=== PATIENT | female | born 1940 | race Caucasian/White ===

== ENCOUNTER → 2016-05-21 | Outpatient (CLI) | payer OTHER ==
[~2016-05-21] MED LIST: ASPCH81X PO; COEN100C7 PO; DIFL0.0519 OPR; MIRA100T PO; PRVC/40 PO
[2016-05-21 16:26] LABS: BLOOD UREA NITROGEN 31 mg/dl (7-18)
== END | disposition home or self-care (01) ==
LOC: C.LAB1850 15:01
PROVIDERS: ATTEND Surgery
DX: J38.01 Paralysis of vocal cords and larynx, unilateral (principal)

== ENCOUNTER → 2016-11-26 | Day surgery (SDC) | payer OTHER ==
[2016-11-17 11:20] VITALS: Ht 170.2 cm; Wt 106.8 kg
[~2016-11-26] VITALS: Ht 170.2 cm; Wt 106.8 kg
[~2016-11-26] MED LIST changes: +500ML BSS 0.3ML EPI 1:1000PF IRRIG ONE; +ACETAMINOPHEN 325 MG TAB PO PRN; +AMVISC PLUS 0.8ML SYRINGE INT OCU ONE; +ATROPINE SULFATE 0.1 MG/ML 5ML SYR IV PRN; +AcetaZOLAMIDE 250 MG TAB PO SCH; +BETAXOLOL HCL 0.25% OP SUSP PER DROP CHARGE OPR SCH; +BRIMONIDINE TART 0.2% OP SOLN PER DROP CHARGE ONE; +BSS FLUSH ONE; +ENDOCOAT 0.85ML SYRINGE INT OCU ONE; +EpHEDrine SULFATE INJ 50 MG/ML AMP IV PRN; +EpINEphrine INJ 1MG/ML AMP 1 MG/ML AMP ONE; +LACTATED RINGER'S 1000ML 500 ML IV SCH; +LIDOCAINE 4% OP SOLN DROP CHARGE ONE; +LIDOCAINE 4% OP SOLN DROP CHARGE OPR SCH; +LIDOCAINE HCL 1% MPF 2 ML VIAL ONE; +MIDAZOLAM HCL 1 MG/ML 2ML VIAL ONE; +MIX: 4ML BSS 1ML EPI 1:1000 PF INSTIL ONE; +MOXIFLOXACIN OPH SOLN PER DROP CHARGE ONE; +OCUCOAT 1 ML SOLN IO ONE; +POVIDONE-IODINE OP SOLN 30 ML BTL ONE; +PROPARACAINE 0.5% OP SOLN PER DROP CHARGE OPR SCH; +TOBRAMYCIN/DEXAMETHASONE OPH OINT PER APPLN CHARGE ONE
[2016-11-26] MEDS: PHENYLEPHRINE HCL 2.5% OP SOLN PER DROP CHARGE OPR SCH ×2 (06:33→06:37)
[2016-11-26] MEDS: TROPICAMIDE 1% OP SOLN PER DROP CHARGE OPR SCH ×2 (06:34→06:38)
--- NOTE | 2016-11-26 06:34 | History & Physical Bridge - SC ---
H&P Re-Evaluation Bridge Note: I have examined the patient, reviewed the History & Physical and in the interval since the performance of the History & Physical I have noted the following changes of clinical significance: No changes noted
[2016-11-26] MEDS: CYCLOPENTOLATE HCL 1% OP SOLN PER DROP CHARGE OPR SCH ×2 (06:35→06:39)
[2016-11-26] MEDS: MOXIFLOXACIN OPH SOLN PER DROP CHARGE OPR SCH ×2 (06:36→06:46)
--- NOTE | 2016-11-26 07:17 | [facility] Operative Report ---
Operative Report Date of Service Nov 26, 2016. Operative Report PREOPERATIVE DIAGNOSIS: Senile nuclear cataract right eye. POSTOPERATIVE DIAGNOSIS: Senile nuclear cataract right eye. PROCEDURE: Phacoemulsification of right cataract with posterior chamber lens implant, type Bausch [employer] Lomb, model MX60, power + 23.00 Diopters. ANESTHESIA: Local standby. SURGEON: Dr. De La Vega. COMPLICATIONS: None. OPERATING TIME: [] minutes. OPERATION AND FINDINGS: PROCEDURE: The right pupil was dilated. The anesthetic was administered using a topical technique. The right eye was prepped and draped. A speculum was placed. A clear corneal incision was formed. The chamber was filled with Amvisc Plus and endocoat. A paracentesis was placed. A capsulorrhexis was performed. The nucleus was hydrodissected. The lens was removed with phacoemulsification. Time was 3.58 seconds. The aspiration unit was used to remove the cortex. The capsule was filled with Amvisc Plus. The lens implant was folded and placed into the capsule. The incision was hydrated. The Amvisc was aspirated. The wound was secure. The chamber was deep. The pupil was round. Alphagan solution and TobraDex ointment and Zymar solution were placed. The speculum was removed. DISPOSITION: The patient was returned to the recovery room in stable condition I attest to the content of the Intraoperative Record and any orders documented therein. Any exceptions are noted below.
--- NOTE | 2016-11-26 07:18 | [facility] Post Operative Brief Note ---
Immediate Operative Summary Operative Date Nov 26, 2016. Pre-Operative Diagnosis Right eye cataract Post-Operative Diagnosis Same as preop Procedure(s) Performed Right Cataract Phacoemulsification With Intraocular Lens Implant Surgeon Dr. De La Vega Home Health Speech Therapist Surgeon(s) None Estimated Blood Loss 0 mL Findings Nuclear cataract Fluids (cc crystalloids) 300 ml Specimens None Drains none Anesthesia L/S Complication(s) None Disposition Recovery Room / PACU
[2016-11-26 07:19] VITALS: TEMP 36.5
--- NOTE | 2016-11-26 07:25 | Discharge Instructions-SurgCtr ---
Discharge Instructions Date of Service Nov 26, 2016. Visit Reason for Visit: Cataract Right Eye Discharge Discharge Diagnosis / Problem: Pseudophakia right eye Discharge Goals Goal(s): Improve function Activity Recommendations Activity Limitations: per Instructions/Follow-up section Lifting Limitations: no more than 10 pounds Exercise/Sports Limitations: as tolerated May Resume Sexual Activity: after one week Shower/Bathe: tomorrow Driving or Machine Use: resume 1 day after discharge As above Anesthesia . Post Anesthesia Instructions: If you have had General Anesthesia or IV Sedation: * Do not drive today. * Resume driving when surgeon permits. * Do not make important decisions or sign legal documents today. * Call surgeon for: 1. Temperature elevations greater than 101 degrees F. 2. Uncontrollable pain. 3. Excessive bleeding. 4. Persistent nausea and vomiting. 5. Medication intolerance (nausea, vomiting or rash). * For nausea and vomiting use only clear liquids such as: tea, soda, bouillon until nausea subsides, then gradually increase diet as tolerated. * If you have any concerns or questions, call your surgeon's office. If physician is unavailable and it is an emergency, call 911 or go to the nearest emergency room. . Instructions / Follow-Up Instructions / Follow-Up ACTIVITY RECOMMENDATIONS: * Light activities. * Mild irritation and blurred vision are common for the first few days. * You may walk outside, read, watch television. * Redness around the white part of the eye is common. MEDICATIONS: Resume previous medications unless instructed otherwise by your surgeon. * Take white Diamox (Acetazolamide) tablet at 1 pm today. Start all eye drops at 1 pm today: * Eye drops (today and tomorrow): Durezol - one drop in operative eye every 3 hours while awake Ofloxacin - one drop in operative eye every 3 hours while awake SPECIAL CARE INSTRUCTIONS: * Tape plastic shield over eye to sleep at night. Call your doctor at with any concerns or problems. FOLLOW UP VISIT: Follow-up with Dr De La Vega at [place] office as scheduled. PREOPERATIVE DIAGNOSIS: Senile nuclear cataract right eye. POSTOPERATIVE DIAGNOSIS: Senile nuclear cataract right eye. PROCEDURE: Phacoemulsification of right cataract with posterior chamber lens implant, type Bausch [employer] Lomb, model [], power + [] Diopters. ANESTHESIA: Local standby. SURGEON: Dr. De La Vega. COMPLICATIONS: None. OPERATING TIME: [] minutes. OPERATION AND FINDINGS: PROCEDURE: The right pupil was dilated. The anesthetic was administered using a [] technique. The right eye was prepped and draped. A speculum was placed. A clear corneal incision was formed. The chamber was filled with Amvisc Plus and []. A paracentesis was placed. A capsulorrhexis was performed. The nucleus was hydrodissected. The lens was removed with phacoemulsification. Time was [] seconds. The aspiration unit was used to remove the cortex. The capsule was filled with Amvisc Plus. The lens implant was folded and placed into the capsule. The incision was hydrated. The Amvisc was aspirated. The wound was secure. The chamber was deep. The pupil was round. Alphagan solution and TobraDex ointment and Zymar solution were placed. The speculum was removed. DISPOSITION: The patient was returned to the recovery room in stable condition Diet Recommendations Home Diet: resume previous diet Procedures Procedures Performed: Right Cataract Phacoemulsification With Intraocular Lens Implant Pending Studies Studies pending at discharge: no Medical Emergencies . Who to Call and When: Medical Emergencies: If at any time you feel your situation is an emergency, please call 911 immediately. . Non-Emergent Contact Non-Emergency issues call your: Training Instructor . . "Provider Documentation" section prepared by Pb De La Vega. .
--- NOTE | 2016-11-26 07:31 | Anesthesia Progress Nt - [facility] ---
Anesthesia Post Op Note Date & Time Nov 26, 2016 at 07:31 Vital Signs Pain Intensity: 0 Vital Signs Past 12 Hours Date Time Temp Pulse Resp B/P (MAP) Pulse Ox O2 Delivery O2 Flow Rate FiO2 11/26/16 07:19 36.5 80 16 145/93 (110) 96 Room Air 11/26/16 06:22 36.9 96 16 147/93 (111) 96 Room Air Notes Mental Status: alert / awake / arousable, participated in evaluation Pt Amnestic to Procedure: Yes Nausea / Vomiting: adequately controlled Pain: adequately controlled Airway Patency, RR, SpO2: stable & adequate BP & HR: stable & adequate Hydration State: stable & adequate Anesthetic Complications: no major complications apparent
[2016-11-26 07:41] VITALS: BP 125/77; PULSE 70; O2SAT 96
== END | disposition home or self-care (01) ==
LOC: X.SURG 06:09
PROVIDERS: ATTEND Specialist
DX: H25.11 Age-related nuclear cataract, right eye (principal); I10 Essential (primary) hypertension; Z79.82 Long term (current) use of aspirin; E78.5 Hyperlipidemia, unspecified; Z90.49 Acquired absence of other specified parts of digestive tract; Z90.89 Acquired absence of other organs; J45.909 Unspecified asthma, uncomplicated; M19.90 Unspecified osteoarthritis, unspecified site; E66.9 Obesity, unspecified

== ENCOUNTER → 2016-12-10 | Day surgery (SDC) | payer OTHER ==
[2016-12-08 12:10] VITALS: Ht 170.2 cm; Wt 106.8 kg
[~2016-12-10] VITALS: Ht 170.2 cm; Wt 106.8 kg
[~2016-12-10] MED LIST changes: -AMVISC PLUS 0.8ML SYRINGE INT OCU ONE; +BETAXOLOL HCL 0.25% OP SUSP PER DROP CHARGE OPL SCH; -BETAXOLOL HCL 0.25% OP SUSP PER DROP CHARGE OPR SCH; +LIDOCAINE 4% OP SOLN DROP CHARGE OPL SCH; -LIDOCAINE 4% OP SOLN DROP CHARGE OPR SCH; +PROPARACAINE 0.5% OP SOLN PER DROP CHARGE OPL SCH; -PROPARACAINE 0.5% OP SOLN PER DROP CHARGE OPR SCH
[2016-12-10] MEDS: PHENYLEPHRINE HCL 2.5% OP SOLN PER DROP CHARGE OPL SCH ×2 (06:35→06:40)
[2016-12-10] MEDS: TROPICAMIDE 1% OP SOLN PER DROP CHARGE OPL SCH ×2 (06:36→06:41)
[2016-12-10] MEDS: CYCLOPENTOLATE HCL 1% OP SOLN PER DROP CHARGE OPL SCH ×2 (06:37→06:42)
[2016-12-10] MEDS: MOXIFLOXACIN OPH SOLN PER DROP CHARGE OPL SCH ×2 (06:38→06:48)
--- NOTE | 2016-12-10 07:11 | Discharge Instructions-SurgCtr ---
Discharge Instructions Date of Service Dec 10, 2016. Visit Reason for Visit: Cataract Left Eye Discharge Discharge Diagnosis / Problem: lens implant left eye Discharge Goals Goal(s): Improve function Activity Recommendations Activity Limitations: resume your previous activity Lifting Limitations: no more than 10 pounds Exercise/Sports Limitations: gradually increase as tolerated May Resume Sexual Activity: when tolerated Shower/Bathe: tomorrow Driving or Machine Use: resume 1 day after discharge Anesthesia . Post Anesthesia Instructions: If you have had General Anesthesia or IV Sedation: * Do not drive today. * Resume driving when surgeon permits. * Do not make important decisions or sign legal documents today. * Call surgeon for: 1. Temperature elevations greater than 101 degrees F. 2. Uncontrollable pain. 3. Excessive bleeding. 4. Persistent nausea and vomiting. 5. Medication intolerance (nausea, vomiting or rash). * For nausea and vomiting use only clear liquids such as: tea, soda, bouillon until nausea subsides, then gradually increase diet as tolerated. * If you have any concerns or questions, call your surgeon's office. If physician is unavailable and it is an emergency, call 911 or go to the nearest emergency room. . Instructions / Follow-Up Instructions / Follow-Up ACTIVITY RECOMMENDATIONS: * Light activities. * Mild irritation and blurred vision are common for the first few days. * You may walk outside, read, watch television. * Redness around the white part of the eye is common. MEDICATIONS: Resume previous medications unless instructed otherwise by your surgeon. * Take white Diamox (Acetazolamide) tablet at 1 pm today. Start all eye drops at 1 pm today: * Eye drops (today and tomorrow): Prednisone - one drop in operative eye every 3 hours while awake Ofloxacin - one drop in operative eye every 3 hours while awake SPECIAL CARE INSTRUCTIONS: * Tape plastic shield over eye to sleep at night. Call your doctor at with any concerns or problems. FOLLOW UP VISIT: Follow-up with Dr De La Vega at [place] office as scheduled. Diet Recommendations Home Diet: no limitations Procedures Procedures Performed: cataract extraction with lens implant Pending Studies Studies pending at discharge: no Medical Emergencies . Who to Call and When: Medical Emergencies: If at any time you feel your situation is an emergency, please call 911 immediately. . Non-Emergent Contact Non-Emergency issues call your: Scrub Technician Call Non-Emergent contact if: your pain is not controlled [phone] . . "Provider Documentation" section prepared by Pb De La Vega. .
--- NOTE | 2016-12-10 07:13 | [facility] Operative Report ---
Operative Report Date of Service Dec 10, 2016. Operative Report 1. PREOPERATIVE DIAGNOSIS: Senile nuclear cataract, left eye. 2. POSTOPERATIVE DIAGNOSIS: Senile nuclear cataract, left eye. 3. PROCEDURE: Phacoemulsification of left cataract with posterior chamber lens implant, type Bausch [employer] Lomb, model MX60, power +22.0 diopters. ANESTHESIA: Local standby. SURGEON: Dr. De La Vega. COMPLICATIONS: None. OPERATING TIME: 10 minutes. 4. OPERATION AND FINDINGS: DESCRIPTION OF PROCEDURE: The left pupil was dilated. The anesthetic was administered using a topical technique. The left eye was prepped and draped. A speculum was placed. A clear corneal incision was formed. The chamber was filled with Amvisc Plus and Endocoat. Epinephrine solution was used. A paracentesis was placed. A capsulorrhexis was performed. The nucleus was hydrodissected. The lens was removed with phacoemulsification. Time was 2.70 seconds. The aspiration unit was used to remove the cortex. The capsule was filled with Amvisc Plus. The lens implant was folded and placed into the capsule. The incision was hydrated. The Amvisc was aspirated. The wound was secure. The chamber was deep. The pupil was round. Brimonidine, TobraDex ointment and Vigamox solution were placed. The speculum was removed. The patient was returned to the Recovery Room in stable condition. I attest to the content of the Intraoperative Record and any orders documented therein. Any exceptions are noted below. The scribe's documentation has been prepared in my presence, under my direction and personally reviewed by me in its entirety. I confirm that the note above accurately reflects all work, treatment, procedures, and medical decision making performed by me. I personally scribed for Pb De La Vega M.D. ([email or web address]) on 12/10/16 at 07:13. Electronically submitted by Melissa Garrison ([email or web address]).
[2016-12-10 07:15] VITALS: BP 136/85; PULSE 84; TEMP 36.3; O2SAT 97
--- NOTE | 2016-12-10 07:40 | Anesthesia Progress Nt - [facility] ---
Anesthesia Post Op Note Date & Time Dec 10, 2016 at 07:39 Vital Signs Pain Intensity: 0 Vital Signs Past 12 Hours Date Time Temp Pulse Resp B/P (MAP) Pulse Ox O2 Delivery O2 Flow Rate FiO2 12/10/16 07:15 36.3 84 16 136/85 (102) 97 Room Air 12/10/16 06:29 37.0 109 18 161/100 (120) 95 Room Air Notes Mental Status: alert / awake / arousable, participated in evaluation Pt Amnestic to Procedure: Yes Nausea / Vomiting: adequately controlled Pain: adequately controlled Airway Patency, RR, SpO2: stable & adequate BP & HR: stable & adequate Hydration State: stable & adequate Anesthetic Complications: no major complications apparent
== END | disposition home or self-care (01) ==
LOC: X.SURG 06:11
PROVIDERS: ATTEND Specialist
DX: H25.12 Age-related nuclear cataract, left eye (principal); I10 Essential (primary) hypertension; Z79.82 Long term (current) use of aspirin

== ENCOUNTER → 2016-12-25 | Outpatient (CLI) | payer OTHER ==
[~2016-12-25] MED LIST changes: -500ML BSS 0.3ML EPI 1:1000PF IRRIG ONE; -ACETAMINOPHEN 325 MG TAB PO PRN; -ATROPINE SULFATE 0.1 MG/ML 5ML SYR IV PRN; -AcetaZOLAMIDE 250 MG TAB PO SCH; -BETAXOLOL HCL 0.25% OP SUSP PER DROP CHARGE OPL SCH; -BRIMONIDINE TART 0.2% OP SOLN PER DROP CHARGE ONE; -BSS FLUSH ONE; -ENDOCOAT 0.85ML SYRINGE INT OCU ONE; -EpHEDrine SULFATE INJ 50 MG/ML AMP IV PRN; -EpINEphrine INJ 1MG/ML AMP 1 MG/ML AMP ONE; -LACTATED RINGER'S 1000ML 500 ML IV SCH; -LIDOCAINE 4% OP SOLN DROP CHARGE ONE; -LIDOCAINE 4% OP SOLN DROP CHARGE OPL SCH; -LIDOCAINE HCL 1% MPF 2 ML VIAL ONE; -MIDAZOLAM HCL 1 MG/ML 2ML VIAL ONE; -MIX: 4ML BSS 1ML EPI 1:1000 PF INSTIL ONE; -MOXIFLOXACIN OPH SOLN PER DROP CHARGE ONE; -OCUCOAT 1 ML SOLN IO ONE; -POVIDONE-IODINE OP SOLN 30 ML BTL ONE; -PROPARACAINE 0.5% OP SOLN PER DROP CHARGE OPL SCH; -TOBRAMYCIN/DEXAMETHASONE OPH OINT PER APPLN CHARGE ONE
[2016-12-25 13:27] LABS: BASO % 1.3 %; BASO ABS # 0.05 K/uL (0-0.2); COMPLETE YES; EOS % 4.9 %; HEMATOCRIT 37.2 % (37-47); IG% 0.5 %; LYMPH % 23.4 %; MEAN CELL VOLUME 88.8 fL (80-100); MEAN CORPUSCULAR HEMOGLOBIN 30.3 pg (25-34); MEAN CORPUSCULAR HGB CONC 34.1 g/dl (32-36); MEAN PLATELET VOLUME 10.5 fL (7.4-10.4); MONO % 8.6 %; NEUT % 61.3 %; PLATELET COUNT 213 K/uL (130-400); RED BLOOD COUNT 4.19 M/uL (4.2-5.4); WHITE BLOOD COUNT 3.85 K/uL (4.8-10.8)
[2016-12-25 13:46] LABS: ESTIMATED AVERAGE GLUCOSE 111 mg/dl; HA1C FLAG Normal (Normal)
[2016-12-25 13:51] LABS: ALT/SGPT 27 U/L (12-78); AST/SGOT 19 U/L (15-37); BLOOD UREA NITROGEN 28 mg/dl (7-18); BUN/CREATININE RATIO 23.6 (10-20); CALCIUM 9.3 mg/dl (8.5-10.1); CARBON DIOXIDE 31 mmol/L (21-32); CHLORIDE 104 mmol/L (98-107); CHOLESTEROL 196 mg/dl (0-200); GLUCOSE 90 mg/dl (70-99); POTASSIUM 3.8 mmol/L (3.5-5.1); SODIUM 138 mmol/L (136-145); TRIGLYCERIDES 107 mg/dl (0-150); VERY LOW DENSITY LIPOPROT CALC 21 mg/dl
[2016-12-25 14:15] LABS: HDL CHOLESTEROL 66 mg/dl; LDL CHOLESTEROL CALCULATED 109 mg/dl
[2016-12-25 15:22] LABS: URINE APPEARANCE CLEAR (CLEAR); URINE BILIRUBIN NEG (NEG); URINE COLOR YELLOW; URINE EPITHELIAL CELL AUTO >30 /lpf (0-5); URINE NITRITE POS (NEG); URINE PH 7.5 (4.5-7.5); URINE SPECIFIC GRAVITY 1.019 (1.000-1.030); UROBILINOGEN NEG (NEG)
[2016-12-25 15:36] LABS: MANUAL MICROSCOPIC REQUIRED? NO; REVIEW REQ? NO
--- NOTE | 2017-01-01 10:57 | CODING QUERY MEDICAL NECESSITY ---
SUPPORTING DIAGNOSIS NEEDED Dr. Jain, A supporting diagnosis is required for the test/procedure performed on this patient in order for us to be reimbursed by the patient's insurance. Please provide a supporting diagnosis for the following test/procedure listed below next to the test name along with your signature. *If there is no additional diagnosis for this patient that would support the following test/procedure please document that below next to the test/procedure. Test(s)/Procedure(s) that require a supporting diagnosis: * [id number] GLYCATED HEMOGLOBIN DIAGNOSIS: DATE OF SERVICE: 12/25/16 Provider Signature: Date: Thank you Blake Zavala [facility] Information Management Once completed, please kindly fax back to [phone] For questions please call [phone]
== END | disposition home or self-care (01) ==
LOC: C.LAB1850 11:40
PROVIDERS: ATTEND Internal Medicine
DX: J45.909 Unspecified asthma, uncomplicated (principal); R73.9 Hyperglycemia, unspecified

== ENCOUNTER → 2017-07-09 | Outpatient (CLI) | payer OTHER ==
[2017-07-09 13:18] LABS: BASO % 1.2 %; BASO ABS # 0.06 K/uL (0-0.2); EOS % 5.2 %; EOS ABS # 0.25 K/uL (0-0.5); HEMATOCRIT 38.4 % (37-47); IG# 0.02 K/uL (0.00-0.02); LYMPH % 21.6 %; LYMPH ABS # 1.04 K/uL (1.2-3.4); MEAN CELL VOLUME 89.5 fL (80-100); MEAN CORPUSCULAR HEMOGLOBIN 30.3 pg (25-34); MEAN CORPUSCULAR HGB CONC 33.9 g/dl (32-36); MEAN PLATELET VOLUME 10.6 fL (7.4-10.4); MONO % 6.7 %; MONO ABS # 0.32 K/uL (0.11-0.59); NEUT % 64.9 %; NEUT ABS # 3.12 K/uL (1.4-6.5); PLATELET COUNT 229 K/uL (130-400); RED CELL DISTRIBUTION WIDTH CV 13.3 % (11.5-14.5); RED CELL DISTRIBUTION WIDTH SD 43.1 fL (36.4-46.3); WHITE BLOOD COUNT 4.81 K/uL (4.8-10.8)
[2017-07-09 13:32] LABS: ALT/SGPT 24 U/L (12-78); AST/SGOT 16 U/L (15-37); BLOOD UREA NITROGEN 36 mg/dl (7-18); CALCIUM 9.2 mg/dl (8.5-10.1); CARBON DIOXIDE 26 mmol/L (21-32); CREATININE 1.35 mg/dl (0.60-1.20); GLUCOSE 98 mg/dl (70-99); POTASSIUM 3.9 mmol/L (3.5-5.1); SODIUM 139 mmol/L (136-145)
[2017-07-09 13:43] LABS: CHOLESTEROL 179 mg/dl (0-200); LDL CHOLESTEROL CALCULATED 87 mg/dl
[2017-07-09 13:52] LABS: HEMOGLOBIN A1C 5.6 % (4.5-5.6)
== END | disposition home or self-care (01) ==
LOC: C.LAB1850 11:40
PROVIDERS: ATTEND Internal Medicine
DX: E78.00 Pure hypercholesterolemia, unspecified (principal)

== ENCOUNTER 2023-07-05 15:35 | Inpatient (IN) ==
[2023-07-05 16:09] LABS: Basophils # (auto) 0.04 K/uL (0.00-0.20); Basophils % (auto) 0.4 %; Eosinophils # (auto) 0.03 K/uL (0.00-0.50); Eosinophils % (auto) 0.3 %; Hematocrit (blood only) 34.7 % (37.0-47.0); Hemoglobin 11.4 g/dl (12.0-16.0); Immature Granulocytes # (auto) 0.06 K/uL (0.01-0.20); Immature Granulocytes % (auto) 0.6 %; Lymphocytes # (auto) 1.08 K/uL (1.20-3.40); Lymphocytes % (auto) 10.6 %; Mean Corpuscular Hemoglobin 32.2 pg (25.0-34.0); Mean Corpuscular Hgb Conc 32.9 g/dL (32.0-36.0); Mean Platelet Volume 10.5 fL (9.4-12.4); Monocytes # (auto) 1.08 K/uL (0.11-0.59); Monocytes % (auto) 10.6 %; Neutrophils # (auto) 7.92 K/uL (1.40-6.50); Neutrophils % (auto) 77.5 %; Platelet Count 229 K/uL (130-400); RDW Coefficient of Variation 13.2 % (11.5-14.5); RDW Standard Deviation 48.1 fL (36.4-46.3); Red Blood Count 3.54 M/uL (4.20-5.40); White Blood Count 10.21 K/ul (4.8-10.8)
--- NOTE | 2023-07-05 16:30 | Emergency Department Note ---
Impression & Plan Generalized weakness, Nausea vomiting and diarrhea, Dehydration, Hypoxia ED Provider Note NAME: TONA KAY AGE: 83 SEX: F : 1940 ARRIVES VIA: Walk-In INFORMANT: Patient, ED PROVIDER(S): Tashi Marina MD CHIEF COMPLAINT: Weakness, nausea vomiting, diarrhea MEDICAL DECISION MAKING: Patient presents due to concern for increasing weakness nausea vomiting and poor appetite. IV was established and blood work was obtained. Patient has a normal white count hemoglobin 11.4 which is chronic and stable platelet count is unremarkable. Patient creatinine 2.13 which is slightly up from before but the patient has had a creatinine size 2.09 back in 2020. Calcium slightly elevated 10.4 with an alk phos of 128. Lipase normal TSH negative. Upon assessment the patient was noted to be on supplemental nasal cannula oxygen and did have hypoxia at 88%. Patient did have crackles on exam and does have a reported history of reactive airway disease the patient was ordered a neb treatment. Given the patient's weakness dehydration patient mild change in kidney dysfunction and hypoxia I did speak the on-call hospitalist service Frantz Patino PA-C the patient was admitted by Dr. Olivo. Critical Care: I have personally spent 35 minutes of critical care time in direct management of this patient. This includes bedside care, interpretation of diagnostic studies, and testing, discussion with consultants, patient, and family members, and other require inpatient management activities. This 35 minutes is in excess of all separately billable procedures. Discussion w/ other healthcare providers: Frantz Rocha PA-C and Dr. Olivo Prior /Outside records reviewed: I reviewed a nurse office visit from April 21, 2023 the patient was seen for vaccination at that time and Dr. Varela's office. Differential diagnosis: Infection, dehydration, metabolic abnormality, hypo/hyperglycemia, electrolyte imbalance, anemia, UTI, pneumonia, thyroid dysfunction among others were considered. Diagnostics, as interpreted by me: ECG: Sinus rhythm, rate of 99, normal intervals, normal axis no ST elevations, T wave flattening in the lateral leads with T wave inversion most prominent in V3 and V4. No ST elevations. Patient did have some flattening noted on prior EKG completed August 15, 2007, T wave version lead III appears old for comparison. Cardiac monitoring: An order was placed for continuous cardiac monitoring. The monitor shows a rate of 95 with sinus rhythm. Patient was placed on pulse oximetry Medical decision rules: None Imaging studies: I informally interpreted the patient's chest x-ray which does not show obvious pneumonia with formal report to follow. HPI: Patient presents due to concern for weakness along with diarrhea it has been ongoing since . Patient has had some associated vomiting that occurred in the morning. Patient denies any chest pains or shortness of breath. Patient has had some occasional cough. Patient denies any falls or trauma. Patient has had some recently worsening weakness. Patient is accompanied by her son who states that she was able to get to the car today but was becoming more weak. Patient denies any known sick contacts or recent travel. No reported blood in the vomit or stool. Patient denies any changes in diet. No untreated stream or well water or recent antibiotics. PAST MEDICAL HISTORY: See Below PAST SURGICAL HISTORY: See Below SOCIAL HISTORY: See Below HOME MEDICATIONS: See Below ALLERGIES: See Below VITALS: See Below PHYSICAL EXAMINATION: GENERAL: NAD, non-toxic. EYE EXAM: Normal conjunctiva. PERRL, no anisocoria and EOM's grossly intact w/o pain. OROPHARYNX: Dry mucus membranes, grossly normal dentition. NECK: Trachea midline, no stridor. Supple, no nuchal rigidity, no adenopathy, non-tender. No signs of meningismus. FROM of the neck with good chin to chest and neck extension. LUNGS: Crackles noted normal chest wall mechanics. HEART: NSR, no MRG. ABDOMEN: Abdomen soft, non-tender, no masses, no rebound or guarding. BACK: No CVA TTP. SKIN: No rashes and no bruising. UPPER EXTREMITIES: Upper extremities are grossly normal. LOWER EXTREMITIES: Grossly normal, no edema. NEURO EXAM: A&O x3, cranial nerves II-XII grossly intact, normal speech, moves all 4 extremities. Past Med/Surg History Medical History Sensorineural hearing loss of both ears Cough Disc degeneration, lumbar Hypercholesterolemia Hyperglycemia Hypertension Idiopathic polyneuropathy Lumbosacral radiculopathy at S1 Motion sickness Osteoarthritis Overweight Reactive airway disease Sciatica Urge incontinence of urine Need for tetanus booster Finger laceration Surgical History No pertinent past surgical history Family History Father Stomach cancer Diabetes Grandfather (Paternal) Stomach cancer Denies family history of Ovarian cancer Prostate cancer Myocardial infarction Breast cancer Lung cancer Colorectal cancer Stroke Social History Smoking Status: Never smoker Second Hand Exposure: Yes; Hx Alcohol Use: No Hx Substance Use: No Preferred Language: Vincentian Visual Impairment: No Limitations Hearing Ability: Hard of Hearing Clinical Partner Required: No Beliefs That Will Affect Care: None marital status: Current Living Situation: Family current occupational status: retired Feels Safe at Home: Yes Childhood Exposure to Second-Hand Smoke: Yes (parents ) Diet: regular Dental Care, Regularly: Yes Physical Activity Frequency: Daily Physical Activity Frequency Comment: normal house clean and cooking Seatbelt Use: always Sunscreen Use: No (always) Allergies Allergies Allergy/AdvReac Type Severity Reaction Status Date / Time No Known Allergies Allergy Mild Unverified 08/13/22 11:36 Home Meds Home Medications Medication Instructions Recorded Confirmed acetaminophen 650 mg 1,300 mg PO BID 07/05/23 07/05/23 tablet,extended release (Tylenol 8 Hour) cholecalciferol (vitamin D3) 25 25 mcg PO DAILY 07/05/23 07/05/23 mcg (1,000 unit) capsule (Vitamin D3) coQ10 (ubiquinol) 100 mg capsule 100 mg PO DAILY 07/05/23 07/05/23 cyanocobalamin (vitamin B-12) 1,000 mcg PO DAILY 07/05/23 07/05/23 1,000 mcg tablet (Vitamin B-12) Previous Rx's Medication Instructions Recorded tramadol 50 mg tablet 50 mg PO BID PRN pain #60 tabs 04/22/23 oxybutynin chloride 10 mg 10 mg PO DAILY #90 tabs 04/28/23 tablet,extended release 24 hr pravastatin 40 mg tablet 40 mg PO DAILY #90 tabs 04/28/23 pregabalin 75 mg capsule 75 mg PO BID #60 caps 04/28/23 spironolactone 25 mg tablet 25 mg PO BID #180 tabs 04/28/23 Results & Data (ED) Vital Signs Vital Signs - 24 hr 07/05/23 15:38 07/05/23 15:51 07/05/23 15:51 Temperature 36.9 C Temperature Source Temporal Artery Scan Pulse Rate 114 H 96 H Pulse Rate [Right Finger] Pulse Rhythm Regular Pulse Strength Normal Respiratory Rate 20 20 Respiratory Effort / Characteristics Non-Labored Spontaneous Respiratory Depth Normal Respiratory Pattern Regular Blood Pressure 119/76 Blood Pressure [Right Arm] Blood Pressure Mean 90 Blood Pressure Mean [Right Arm] Blood Pressure Position Sitting Pulse Oximetry 98 92 92 Oxygen Delivery Method Room Air Room Air Room Air Sepsis Recent Fever Within 48 Hours No Sepsis New/Unexplained Change in Mental Status No Sepsis Action Taken by Nursing No Action Required 07/05/23 16:04 07/05/23 18:38 Temperature Temperature Source Pulse Rate 96 H Pulse Rate [Right Finger] 84 Pulse Rhythm Pulse Strength Respiratory Rate 20 Respiratory Effort / Characteristics Non-Labored Spontaneous Respiratory Depth Normal Respiratory Pattern Blood Pressure Blood Pressure [Right Arm] 146/85 H Blood Pressure Mean Blood Pressure Mean [Right Arm] 105 Blood Pressure Position Pulse Oximetry 95 Oxygen Delivery Method Room Air Sepsis Recent Fever Within 48 Hours Sepsis New/Unexplained Change in Mental Status Sepsis Action Taken by [place]way Medications Current Medication List: was personally reviewed by me Laboratory Data Attestation: I reviewed the patient's lab results. 07/05/23 15:53 07/05/23 15:53 Lab Results 07/05/23 07/05/23 Range/Units 15:53 16:40 WBC 10.21 (4.8-10.8) K/ul RBC 3.54 L (4.20-5.40) M/uL Hgb 11.4 L (12.0-16.0) g/dl Hct 34.7 L (37.0-47.0) % MCV 98.0 (80.0-100.0) fL MCH 32.2 (25.0-34.0) pg MCHC 32.9 (32.0-36.0) g/dL RDW Std Deviation 48.1 H (36.4-46.3) fL RDW Coeff of Juni 13.2 (11.5-14.5) % Plt Count 229 (130-400) K/uL MPV 10.5 (9.4-12.4) fL Immature Gran % (Auto) 0.6 % Neut % (Auto) 77.5 % Lymph % (Auto) 10.6 % [place] % (Auto) 10.6 % Eos % (Auto) 0.3 % Baso % (Auto) 0.4 % Neut # (Auto) 7.92 H (1.40-6.50) K/uL Lymph # (Auto) 1.08 L (1.20-3.40) K/uL [place] # (Auto) 1.08 H (0.11-0.59) K/uL Eos # (Auto) 0.03 (0.00-0.50) K/uL Baso # (Auto) 0.04 (0.00-0.20) K/uL Immature Gran # (Auto) 0.06 (0.01-0.20) K/uL Sodium 136 (136-145) mmol/L Potassium 4.3 (3.5-5.1) mmol/L Chloride 105 (98-107) mmol/L Carbon Dioxide 20 L (21-32) mmol/L Anion Gap 11 (3-11) BUN 38 H (6-23) mg/dl Creatinine 2.13 H (0.6-1.2) mg/dl Est Cr Clr Drug Dosing 24.4 ml/min Est GFR ( Amer) 24.4 ml/min Est GFR (Non-Af Amer) 21.0 ml/min BUN/Creatinine Ratio 17.8 (10-20) Glucose 126 H (70-99(Fasting)) mg/dl Calcium 10.4 H (8.6-10.3) mg/dl Magnesium 1.6 L (1.7-2.4) mg/dl Total Bilirubin 0.6 (0.2-1.0) mg/dl AST 21 (13-39) U/L ALT 19 (7-52) U/L Alkaline Phosphatase 128 H (34-104) U/L Troponin I High Sens 6.9 (0-14) pg/ml Total Protein 8.3 (6.0-8.3) gm/dl Albumin 4.0 (3.4-5.0) gm/dl Globulin 4.3 H (2.5-4.0) gm/dl Albumin/Globulin Ratio 0.9 (0.9-2) Lipase 27 (11-82) U/L TSH 0.422 (0.300-4.500) uIu/ml Adenovirus (PCR) Not Detected (NotDetected) B. pertussis DNA (PCR) Not Detected (NotDetected) B.parapertussis DNA PCR Not Detected (NotDetected) C. pneumoniae DNA (PCR) Not Detected (NotDetected) Coronavirus OC43 (PCR) Not Detected (NotDetected) Coronavirus HKU1 (PCR) Not Detected (NotDetected) Coronavirus 229E (PCR) Not Detected (NotDetected) SARS-CoV-2 (PCR) Not Detected (NotDetected) Coronavirus NL63 (PCR) Not Detected (NotDetected) Human Metapneumovir PCR Not Detected (NotDetected) Influenza Type A (PCR) Not Detected (NotDetected) Influenza Type B (PCR) Not Detected (NotDetected) M. pneumoniae (PCR) Not Detected (NotDetected) Parainfluenza 1 (PCR) Not Detected (NotDetected) Parainfluenza 2 (PCR) Not Detected (NotDetected) Parainfluenza 3 (PCR) Not Detected (NotDetected) Parainfluenza 4 (PCR) Not Detected (NotDetected) RSV (PCR) Not Detected (NotDetected) Entero/Rhino (PCR) Not Detected (NotDetected) Administered Medications Magnesium Sulfate/Dextrose (Magnesium Sulfate / D5w) 1 gm in 100 mls @ 50 mls/hr IV Q2H [facility] Stop: 07/06/23 02:29 Last Admin: 07/05/23 23:13 Dose: 50 mls/hr Documented By: Infusion: 07/05/23 22:46 Dose: Infused Documented By: Admin: 07/05/23 20:46 Dose: 50 mls/hr Documented By: PAVEL Lactated Ringer's (Lr) 1,000 mls @ 80 mls/hr IV .[id number] [facility] Stop: 07/06/23 09:34 Last Admin: 07/05/23 23:13 Dose: 80 mls/hr Documented By: PAVEL Pregabalin (Pregabalin 75 Mg Cap) 75 mg PO BID [facility] Stop: 08/04/23 21:04 Last Admin: 07/05/23 22:06 Dose: 75 mg Documented By: PAVEL Discontinued Medications Albuterol (Albut/Ipratrop 3mg/0.5mg Neb 3 Ml Vial) 3 ml NEB NOW STA; Protocol Stop: 07/05/23 18:19 Last Admin: 07/05/23 18:48 Dose: 3 ml Documented By: JOY Sodium Chloride (Nss) 1,000 mls @ 999 mls/hr IV .Q1H1M ONE Stop: 07/05/23 17:31 Last Infusion: 07/05/23 17:40 Dose: Infused Documented By: Admin: 07/05/23 16:37 Dose: 999 mls/hr Documented By: JOY Lactated Ringer's (Lr) 1,000 mls @ 999 mls/hr IV .Q1H1M ONE Stop: 07/05/23 19:47 Last Infusion: 07/05/23 21:48 Dose: Infused Documented By: Admin: 07/05/23 20:46 Dose: 999 mls/hr Documented By: PAVEL Ondansetron HCl (Ondansetron Inj 2 Mg/Ml 2 Ml Vial) 4 mg IV NOW STA Stop: 07/05/23 16:32 Last Admin: 07/05/23 16:35 Dose: 4 mg Documented By: JOY Imaging Data Radiologist's Impression: Chest X-Ray 07/05/23 15:45 XR chest 1V portable HISTORY: weakness COMPARISON: Chest 08/16/2007. FINDINGS: No pneumothorax. No pleural effusions. There are low lung volumes. The cardiac silhouette is mildly enlarged. This is similar to the prior study. No new focal lung consolidations to suggest a pneumonia. No evidence for pulmonary edema. There are calcifications within the aortic knob. No acute fractures identified. IMPRESSION: No significant change compared to the prior study. No acute process. ACT 112: Negative or not required by law. Electronically signed by: Alfonzo Elaine M.D. 07/05/2023 4:40 PM Discharge Plan Visit Data Chief Complaint: Weakness Stated Complaint: ABDOMNAL PAIN ED Provider: Tashi Marina Discharge Problem: Generalized weakness, Nausea vomiting and diarrhea, Dehydration, Hypoxia Patient Disposition: Admitted As Inpatient Discharge Instructions Interventions: ED Discharge Assessment Last Done: 07/05/23 20:46
[2023-07-05 16:32] LABS: Albumin Globulin Ratio 0.9 (0.9-2); BUN Creatinine Ratio 17.8 (10-20); Bilirubin,Total 0.6 mg/dl (0.2-1.0); Calcium 10.4 mg/dl (8.6-10.3); Creatinine Clr Calc Pharmacy 24.4 ml/min; Est GFR (African American) 24.4 ml/min; Globulin 4.3 gm/dl (2.5-4.0); Potassium 4.3 mmol/L (3.5-5.1); Total Protein 8.3 gm/dl (6.0-8.3)
[2023-07-05] MEDS: ONDANSETRON INJ 2 MG/ML 2 ML VIAL IV STA (16:35)
[2023-07-05] MEDS: SODIUM CHLORIDE 0.9% 1,000 ML IV ONE (16:37)
--- NOTE | 2023-07-05 16:43 | XRay Report ---
XR chest 1V portable HISTORY: weakness COMPARISON: Chest 08/16/2007. FINDINGS: No pneumothorax. No pleural effusions. There are low lung volumes. The cardiac silhouette i s mildly enlarged. This is similar to the prior study. No new focal lung consolidations to suggest a pneumonia. No evidence for pulmonary edema. There are calcifications within the aortic knob. No acute fractures identified. IMPRESSION: No significant change compared to the prior study. No acute process. ACT 112: Negative or not required by law. Electronically signed by: Alfonzo Elaine M.D. 07/05/2023 4:40 PM
[2023-07-05 16:47] LABS: Thyroid Stimulating Hormone 0.422 uIu/ml (0.300-4.500)
[2023-07-05 17:34] LABS: Adenovirus PCR Not Detected (NotDetected); Bordetella parapertussis PCR Not Detected (NotDetected); Bordetella pertussis PCR Not Detected (NotDetected); Chlamydia pneumoniae PCR Not Detected (NotDetected); Coronavirus 229E PCR Not Detected (NotDetected); Coronavirus CoV-2 (COVID19)PCR Not Detected (NotDetected); Coronavirus HKU1 PCR Not Detected (NotDetected); Coronavirus NL63 PCR Not Detected (NotDetected); Coronavirus OC43PCR Not Detected (NotDetected); Human Metapneumovirus PCR Not Detected (NotDetected); Influenza A PCR Not Detected (NotDetected); Influenza B PCR Not Detected (NotDetected); Mycoplasma pneumoniae PCR Not Detected (NotDetected); Parainfluenza Virus 1 PCR Not Detected (NotDetected); Parainfluenza Virus 2 PCR Not Detected (NotDetected); Parainfluenza Virus 3 PCR Not Detected (NotDetected); Parainfluenza Virus 4 PCR Not Detected (NotDetected); Respiratory Syncytial VirusPCR Not Detected (NotDetected); Rhinovirus/Enterovirus PCR Not Detected (NotDetected)
[2023-07-05 17:43] LABS: Troponin I High Sensitivity 6.9 pg/ml (0-14)
--- NOTE | 2023-07-05 18:32 | History & Physical Report ---
Date of Service July 05, 2023 Assessment & Plan (1) Generalized weakness: Plan: -Admit to med/tele -Currently stable and non-toxic appearing -Presented to the ED with 72 hours of recurrent nausea, vomiting, abdominal cramping, and non-bloody diarrhea -Has had associated decreased oral intake during this time as well -At this time it appears that her generalized weakness is due to dehydration from gastroenteritis -Cannot rule out UTI with recent symptoms, will obtain UA -GI symptoms are currently controlled -Will continue IV hydration overnight -PT/OT consults placed -Clear liquid diet for now -BL KAHLIL's for DVT PPX -AM CBC, BMP, mag (2) Nausea vomiting and diarrhea: Plan: -Her symptoms are most consistent with gastroenteritis -Will order stool panel with C. diff PCR -CDC has recently reported a Norovirus outbreak in the [facility] -Will obtain KUB now to monitor for signs of obstruction but pain is currently under control -Clear liquid diet for now -Light IV hydration overnight -PRN zofran (3) Dehydration: Plan: -Cr and BUN are elevated, but not technically an JOHN at this time -Mucus membranes are dry on exam -Continue IV hydration overnight -Ensure she is able to eat consistently prior to discharge home (4) Hypoxia: Plan: -Resolved -At this time I do not believe that the patient was truly hypoxic earlier -Her SpO2 finger sensor was located on the same arm as her BP cuff, this likely caused transient hypoxia when her BP was automatically obtained -She remained stable on RA during my exam -CXR is clear, lungs are clear on exam -Incentive spirometry -PRN albuterol (5) Hypertension: Plan: -Stable -Hold spironolactone on admission to prevent further dehydration (6) Reactive airway disease: Plan: -Lungs are clear on exam -PRN albuterol -Incentive spirometry Plan The patient was discussed with Dr. Olivo at the time of the admission History of Present Illness Chief Complaint: Generalized weakness, nausea, vomiting, poor oral intake Primary Care Provider: Pb Domínguez MD Radha is an 83 year old female with a PMH significant for HTN, idiopathy polyneuropathy, hyperlipidemia,and CKD (baseline Cr near 1.7) who presented to the [facility] ED on 07/05/23 with complaints of Generalized weakness, nausea/vomiting, and poor oral intake. Per the ED staff, the patient apparently had an episode of hypoxia with SpO2 in the 80's on RA but was otherwise stable. Labs were significant for a Cr of 2.13 and BUN of 38, bicarb of 20 with AG WNL, calcium of 10.4, and full respiratory biofire negative. Chest xray was read as "No significant change compared to the prior study. No acute process.". Prior to admission the patient was given 1L NSS, 4 mg IV zofran, and an albuterol treatment. At the time of the exam the patient was sitting in bed in no acute distress with her son sitting bedside. On inspection, the patient's SpO2 sensor was located on the right upper extremity, which also had the BP cuff. I switched the SpO2 sensor to the left hand and turned her O2 off. She remained stable on RA throughout my exam. She states that she has been experiencing recurrent episodes of nausea, vomiting, cramping abdominal pain, and non-bloody diarrhea since 07/03/23. She denies recent fever, chest pain, SOB, cough, hematemesis, LE swelling,and recent falls/trauma. When asked about urinary symptoms she mentions that she has been experiencing increased urinary frequency and some dysuria, over the past 4-5 days, she denies hematuria. Her oral intake has been poor since 07/03, she has been taking her medications as prescribed. She is the primary caregiver for her who has multiple chronic medical issues, she has been too weak to safely care for him at home. Her children are able to stay with him while she is admitted. She has a chronic tremor which is exacerbated during times of increased stress. We discussed code status, she is a DNR/DNI and her children would make medical decisions for her if she cannot make them herself. Please refer to Dr. Olivo's attestation for any changes to the treatment plan Allergies Allergy/AdvReac Type Severity Reaction Status Date / Time No Known Allergies Allergy Mild Unverified 08/13/22 11:36 Home Medications Medication Instructions Recorded Confirmed Type tramadol 50 mg tablet 50 mg PO BID PRN pain #60 tabs 04/22/23 07/05/23 Rx oxybutynin chloride 10 mg 10 mg PO DAILY #90 tabs 04/28/23 07/05/23 Rx tablet,extended release 24 hr pravastatin 40 mg tablet 40 mg PO DAILY #90 tabs 04/28/23 07/05/23 Rx pregabalin 75 mg capsule 75 mg PO BID #60 caps 04/28/23 07/05/23 Rx spironolactone 25 mg tablet 25 mg PO BID #180 tabs 04/28/23 07/05/23 Rx acetaminophen 650 mg 1,300 mg PO BID 07/05/23 07/05/23 History tablet,extended release (Tylenol 8 Hour) cholecalciferol (vitamin D3) 25 25 mcg PO DAILY 07/05/23 07/05/23 History mcg (1,000 unit) capsule (Vitamin D3) coQ10 (ubiquinol) 100 mg capsule 100 mg PO DAILY 07/05/23 07/05/23 History cyanocobalamin (vitamin B-12) 1,000 mcg PO DAILY 07/05/23 07/05/23 History 1,000 mcg tablet (Vitamin B-12) Past Med/Surg History Medical History Sensorineural hearing loss of both ears Cough Disc degeneration, lumbar Hypercholesterolemia Hyperglycemia Hypertension Idiopathic polyneuropathy Lumbosacral radiculopathy at S1 Motion sickness Osteoarthritis Overweight Reactive airway disease Sciatica Urge incontinence of urine Need for tetanus booster Finger laceration Surgical History No pertinent past surgical history Family History Father Stomach cancer Diabetes Grandfather (Paternal) Stomach cancer Denies family history of Ovarian cancer Prostate cancer Myocardial infarction Breast cancer Lung cancer Colorectal cancer Stroke Social History Smoking Status: Never smoker Second Hand Exposure: Yes; Hx Alcohol Use: No Hx Substance Use: No Preferred Language: Divehi Visual Impairment: No Limitations Hearing Ability: Hard of Hearing [place] Machine Operator Required: No Beliefs That Will Affect Care: None marital status: Current Living Situation: Family current occupational status: retired Feels Safe at Home: Yes Childhood Exposure to Second-Hand Smoke: Yes (parents ) Diet: regular Dental Care, Regularly: Yes Physical Activity Frequency: Daily Physical Activity Frequency Comment: normal house clean and cooking Seatbelt Use: always Sunscreen Use: No (always) Physical Exam Physical Exam: Physical Exam: General: In no acute distress, stated age, ill appearing but non-toxic HEENT: Normocephalic, atraumatic, no scleral icterus, pupils around round, symmetrical, and reactive to light, dry mucus membranes, trachea midline, no thyromegaly Chest/Pulm: No respiratory distress, symmetrical chest expansion, clear breath sounds throughout Cardiac: RRR, no murmurs noted Abdomen: Negative for ascites and bruising, hypoactive bowel sounds, soft, non-tender to palpation throughout Musculoskeletal: Symmetrical and without signs of acute trauma, upper and lower extremities with full ROM, no atrophy, spasticity, or flaccidity Extremities: Radial, dorsalis pedis, and posterior tibial pulses are intact and symmetrical, no edema noted in the BL LE's Skin: Warm, dry, no rashes , lesions, or scars noted Neuro: Alert and oriented to person, place, month, year, and president, no focal defects, baseline resting tremor noted Psych: No acute distress, calm and cooperative during the exam Results & Data Results & Data Vital Signs (Past 12 Hours) Vital Signs Temp Pulse Resp BP Pulse Ox O2 Del Method 07/05/23 16:04 96 H 07/05/23 15:51 96 H 20 92 Room Air 07/05/23 15:51 92 Room Air 07/05/23 15:38 36.9 C 114 H 20 119/76 98 Room Air Laboratory Results Abnormal lab results 07/05/23 Range/Units 15:53 RBC 3.54 L (4.20-5.40) M/uL Hgb 11.4 L (12.0-16.0) g/dl Hct 34.7 L (37.0-47.0) % RDW Std Deviation 48.1 H (36.4-46.3) fL Neut # (Auto) 7.92 H (1.40-6.50) K/uL Lymph # (Auto) 1.08 L (1.20-3.40) K/uL [place] # (Auto) 1.08 H (0.11-0.59) K/uL Carbon Dioxide 20 L (21-32) mmol/L BUN 38 H (6-23) mg/dl Creatinine 2.13 H (0.6-1.2) mg/dl Glucose 126 H (70-99(Fasting)) mg/dl Calcium 10.4 H (8.6-10.3) mg/dl Alkaline Phosphatase 128 H (34-104) U/L Globulin 4.3 H (2.5-4.0) gm/dl Diagnostic Findings Abnormal lab results 07/05/23 Range/Units 15:53 RBC 3.54 L (4.20-5.40) M/uL Hgb 11.4 L (12.0-16.0) g/dl Hct 34.7 L (37.0-47.0) % RDW Std Deviation 48.1 H (36.4-46.3) fL Neut # (Auto) 7.92 H (1.40-6.50) K/uL Lymph # (Auto) 1.08 L (1.20-3.40) K/uL [place] # (Auto) 1.08 H (0.11-0.59) K/uL Carbon Dioxide 20 L (21-32) mmol/L BUN 38 H (6-23) mg/dl Creatinine 2.13 H (0.6-1.2) mg/dl Glucose 126 H (70-99(Fasting)) mg/dl Calcium 10.4 H (8.6-10.3) mg/dl Alkaline Phosphatase 128 H (34-104) U/L Globulin 4.3 H (2.5-4.0) gm/dl ECG Additional Comments: Normal sinus rhythm Low voltage QRS Cannot rule out Anterior infarct , age undetermined Abnormal ECG When compared with ECG of 15-AUG-2007 23:14, Minimal criteria for Anterior infarct are now Present Nonspecific T wave abnormality now evident in Anterolateral leads Code Status & VTE Plan Code Status Full codes VTE Prophylaxis Plan VTE Prophylaxis will be ordered: Yes Supervising Physician Co-Signing Physician Notes I personally saw and examined the patient. I verified all stock points and agree with Frantz Patino PA-C with the following exceptions and/or additions: 83 year old female presents to the ER with generalized weakness, nausea, vomtiing, diarrhea. No diarrhea since admission. No abdominal pain. O/E A&Ox3, HS RRR, no murmurs, Chest CTAB, Abdo SNT, no CVA tenderness A/P Generalized weakness - appears she has an acute infection. Mild neutrophilia but no significant WBC. Diarrhea - Stool PCR pending. UA pending. CXR not suggestive of infection. Patient is not septic therefore empiric antibiotics deferred given possible viral etiology for diarrhea as cause. PT/OT ordered. Agree with holding diuretics with gentle rehydration given slight increase in Cr. PG Care Time/CCT Total # of Minutes Spent Total Time Spent with Patient: Total time spent is greater than 50% in coordination of care (as documented) at patient's floor/unit and/or counseling patient: [place] [address] INT INP/OBS CARE 3/75MIN Patient Type Established Medical Decision Making High Complexity Diagnoses Generalized weakness R53.1 Nausea vomiting and diarrhea R11.2; R19.7 Dehydration E86.0 Hypoxia R09.02 Hypertension I10 Reactive airway disease J45.451
[2023-07-05] MEDS: ALBUT/IPRATROP 3MG/0.5MG NEB 3 ML VIAL NEB STA (18:48)
[2023-07-05] MEDS ORDERED: ONDANSETRON INJ 2 MG/ML 2 ML VIAL IV PRN (18:50)
[2023-07-05] MEDS ORDERED: ALBUTEROL 0.5% NEB SOLN 2.5 MG/0.5 ML VIAL NEB PRN (19:07)
[2023-07-05 19:13] LABS: Magnesium 1.6 mg/dl (1.7-2.4)
--- NOTE | 2023-07-05 19:38 | XRay Report ---
KUB HISTORY: nausea, vomiting, abd pain COMPARISON: Abdomen and pelvis CT 01/13/2008. FINDINGS: The bowel gas pattern is unremarkable. There are no dilated loops of small bowel to suggest an obstruction. No renal calculi. No ureteral calculi. Calcifications in the deep pelvis likely rep resent phleboliths. Prior cholecystectomy. No pneumoperitoneum or pneumatosis. IMPRESSION: Nonobstructive bowel gas pattern. ACT 112: Negative or not required by law. Electronically signed by: Alfonzo Elaine M.D. 07/05/2023 7:37 PM
[2023-07-05] MEDS: LACTATED RINGER'S 1,000 ML IV ONE (20:46)
[2023-07-05] MEDS: MAGNESIUM SULFATE / D5W 1 GM/100 ML BAG IV SCH (20:46)
[2023-07-05] MEDS ORDERED: traMADol HCL 50 MG TABLET PO PRN (21:05)
[2023-07-05] MEDS ORDERED: ALBUTEROL 0.083% NEBU SOLN 3 ML VIAL NEB PRN (21:37)
[2023-07-05] MEDS: PREGABALIN 75 MG CAP PO SCH (22:06)
[2023-07-05] MEDS: LACTATED RINGER'S 1,000 ML IV SCH (23:13)
[2023-07-06 04:11] LABS: Appearance Urine Turbid (Clear); Bacteria Urine Automated 3+ (Negative); Bilirubin Urine Negative (Negative); Blood Urine 3+ (Negative); Color Urine Yellow; Epithelial Cell Urine Auto >30 /lpf (0-5); Glucose Urine UA Negative (Negative); Ketones Urine Negative (Negative); Leukocyte Esterase Urine 3+ (Negative); Nitrite Urine Positive (Negative); Protein Urine Trace (Negative); RBC Urine Automated >30 /hpf (0-4); Specific Gravity Urine 1.013 (1.000-1.030); Urobilinogen Urine Negative (Negative); WBC Urine Automated >30 /hpf (0-5); pH Urine 5.5 (4.5-7.5)
[2023-07-06 04:50] LABS: Basophils # (auto) 0.04 K/uL (0.00-0.20); Basophils % (auto) 0.5 %; Eosinophils # (auto) 0.06 K/uL (0.00-0.50); Eosinophils % (auto) 0.8 %; Hematocrit (blood only) 29.2 % (37.0-47.0); Hemoglobin 9.2 g/dl (12.0-16.0); Immature Granulocytes # (auto) 0.05 K/uL (0.01-0.20); Immature Granulocytes % (auto) 0.7 %; Lymphocytes # (auto) 1.06 K/uL (1.20-3.40); Lymphocytes % (auto) 14.3 %; Mean Corpuscular Hemoglobin 31.7 pg (25.0-34.0); Mean Corpuscular Hgb Conc 31.5 g/dL (32.0-36.0); Mean Corpuscular Volume 100.7 fL (80.0-100.0); Mean Platelet Volume 10.9 fL (9.4-12.4); Monocytes # (auto) 0.94 K/uL (0.11-0.59); Monocytes % (auto) 12.7 %; Neutrophils # (auto) 5.26 K/uL (1.40-6.50); Platelet Count 191 K/uL (130-400); RDW Coefficient of Variation 13.4 % (11.5-14.5); RDW Standard Deviation 50.3 fL (36.4-46.3); White Blood Count 7.41 K/ul (4.8-10.8)
[2023-07-06 04:54] LABS: BUN Creatinine Ratio 17.7 (10-20); Calcium 9.6 mg/dl (8.6-10.3); Creatinine Clr Calc Pharmacy 29.7 ml/min; Est GFR (African American) 30.9 ml/min; Est GFR (Non-African American) 26.7 ml/min; Magnesium 2.4 mg/dl (1.7-2.4); Potassium 4.6 mmol/L (3.5-5.1)
[2023-07-06] MEDS ORDERED: cefTRIAXone SODIUM 1,000 MG in DEXTROSE 5 % MINI-B 50 ML IV SCH (08:00)
[2023-07-06] MEDS: OXYBUTYNIN CHLORIDE XL 5 MG TABCR PO SCH (08:14)
[2023-07-06] MEDS: PRAVASTATIN SOD 40 MG TAB PO SCH (08:14)
[2023-07-06] MEDS: cefTRIAXone SODIUM 2,000 MG in DEXTROSE 5 % MINI-B 50 ML IV SCH (08:54)
--- NOTE | 2023-07-06 12:42 | Hospitalist Progress Note ---
Date of Service July 06, 2023 Assessment & Plan (1) Generalized weakness: Plan: - Suspect from UTI vs gastroenteritis - Stool cultures/c.diff still uncollected - Nausea has improved. - advance diet to low fiber -Will d/c fluids - 3L recieved -PT/OT consults placed -AM CBC, BMP, mag (2) Nausea vomiting and diarrhea: Plan: Improving - stool panel with C. diff PCR - pending - KUB without obstruction -PRN zofran (3) Dehydration: Plan: -Cr and BUN are elevated, but not technically an JOHN at this time - Clinically improved, and patient reports good appetite - Kidney function improving (4) Hypoxia: Plan: -Resolved - Unsure if patient was truly hypoxic as SpO2 finger sensor on the same arm as her BP cuff in the ER Now stable on room air (5) Hypertension: Plan: -BPs stable - Will keep spironolactone on hold for now Plan Dispo: continued inpatient stay DVT proh: Heparin SQ q12 Admission and Anticipated Discharge Date Admission Date: July 05, 2023 Subjective Patient resting in bed, states she is feeling better today. Reports starting thursday she was having diarrhea and vomiting after her morning pills. She reports two episodes of diarrhea today but was able to tolerate her morning pills. Does feel weak when she is getting out of bed. When asked - does endorse burning with urination since Thursday. States that hasnt really happened before but did not really think anything of it. Review of Systems Review of Systems: All systems reviewed & are unremarkable except as noted in Subjective Physical Exam Physical Exam: General: NAD, VS as above Resp: normal respiratory effort, lungs clear to auscultation, currently on room air CV: RRR, no murmur, Abd: normal bowel sounds, mild suprapubic tenderness, no hepatosplenomegaly Extremities: Moves all extremities, no edema Results & Data Results & Data Vital Signs (Past 12 Hours) Vital Signs Pulse Resp BP Pulse Ox O2 Del Method O2 Flow Rate 07/06/23 10:00 66 13 91 07/06/23 09:00 74 17 93 07/06/23 08:12 78 16 93 07/06/23 07:38 69 07/06/23 07:00 70 14 99 07/06/23 06:00 64 13 120/70 97 Nasal Cannula 2 07/06/23 04:00 81 17 128/66 90 07/06/23 03:00 74 12 110/62 92 07/06/23 01:00 76 12 115/63 91 Laboratory Results CBC, chemistry, procal, mag and UA reviewed PG Care Time/CCT Total # of Minutes Spent Total Time Spent with Patient: Total time spent is greater than 50% in coordination of care (as documented) at patient's floor/unit and/or counseling patient: Coding Level of Care Code 14257 SUB INP/OBS CARE 2/35MIN Diagnoses Generalized weakness R53.1 Nausea vomiting and diarrhea R11.2; R19.7 Dehydration E86.0 Hypoxia R09.02 Hypertension I10
--- NOTE | 2023-07-06 13:31 | Electrocardiogram Report ---
Test Reason : Blood Pressure : / mmHG Vent. Rate : 099 BPM Atrial Rate : 099 BPM P-R Int : 170 ms QRS Dur : 088 ms QT Int : 338 ms P-R-T Axes : 092 -13 005 degrees QTc Int : 433 ms Normal sinus rhythm Low voltage QRS RSR' or QR pattern in V1 suggests right ventricular conduction delay Poor R wave progression, consider anterior PR vs. lead placement vs. LVH Abnormal ECG When compared with ECG of 15-AUG-2007 23:14, Minimal criteria for Anterior infarct are now Present Nonspecific T wave abnormality now evident in Anterolateral leads Confirmed by Pb Blackmon ([id number]) on 07/06/2023 1:30:42 PM Referred By: Confirmed By:Pb Blackmon
[2023-07-06] MEDS: ACETAMINOPHEN 325 MG TAB PO SCH (21:06)
[2023-07-06] MEDS: HEPARIN SOD 5,000 UNIT/0.5 ML VIAL SQ SCH (21:07)
[2023-07-07 06:43] LABS: Basophils # (auto) 0.04 K/uL (0.00-0.20); Basophils % (auto) 0.6 %; Eosinophils % (auto) 4.4 %; Hematocrit (blood only) 28.1 % (37.0-47.0); Hemoglobin 9.2 g/dl (12.0-16.0); Immature Granulocytes # (auto) 0.06 K/uL (0.01-0.20); Immature Granulocytes % (auto) 0.9 %; Lymphocytes # (auto) 1.12 K/uL (1.20-3.40); Lymphocytes % (auto) 16.5 %; Mean Corpuscular Hemoglobin 32.6 pg (25.0-34.0); Mean Corpuscular Hgb Conc 32.7 g/dL (32.0-36.0); Mean Corpuscular Volume 99.6 fL (80.0-100.0); Monocytes # (auto) 0.97 K/uL (0.11-0.59); Monocytes % (auto) 14.3 %; Neutrophils # (auto) 4.29 K/uL (1.40-6.50); Neutrophils % (auto) 63.3 %; Platelet Count 203 K/uL (130-400); RDW Coefficient of Variation 13.2 % (11.5-14.5); RDW Standard Deviation 49.1 fL (36.4-46.3); Red Blood Count 2.82 M/uL (4.20-5.40); White Blood Count 6.78 K/ul (4.8-10.8)
[2023-07-07 07:06] LABS: BUN Creatinine Ratio 15.8 (10-20); Calcium 9.5 mg/dl (8.6-10.3); Creatinine Clr Calc Pharmacy 28.8 ml/min; Est GFR (African American) 29.1 ml/min; Est GFR (Non-African American) 25.1 ml/min; Magnesium 1.9 mg/dl (1.7-2.4); Potassium 4.2 mmol/L (3.5-5.1)
--- NOTE | 2023-07-07 14:48 | Discharge Summary ---
Discharge Summary Date of Service July 07, 2023 Notes For Next Care Provider urine culture pending at time of discharge, however patient without history of resistant organism. Culture growing gram-negative bacilli. I will contact patient tomorrow 07/08 if her antibiotics need to be adjusted. She was discharged on renally dosed cefdinir. blood cultures no growth at 24 hours at discharge, will need followed up on patient primary caregiver of her , and per my discussion with her son, Hugo, it is unclear how long she will be able to sustain this. Medication Changes From Visit Cefdinir 300 mg qAM x 5 days (renally dosed) Spironolactone on hold - consider different antihypertensive agent Admission HPI Per Admitting Provider Radha is an 83 year old female with a PMH significant for HTN, idiopathy polyneuropathy, hyperlipidemia,and CKD (baseline Cr near 1.7) who presented to the [facility] ED on 07/05/23 with complaints of Generalized weakness, nausea/vomiting, and poor oral intake. Per the ED staff, the patient apparently had an episode of hypoxia with SpO2 in the 80's on RA but was otherwise stable. Labs were significant for a Cr of 2.13 and BUN of 38, bicarb of 20 with AG WNL, calcium of 10.4, and full respiratory biofire negative. Chest xray was read as "No significant change compared to the prior study. No acute process.". Prior to admission the patient was given 1L NSS, 4 mg IV zofran, and an albuterol treatment. At the time of the exam the patient was sitting in bed in no acute distress with her son sitting bedside. On inspection, the patient's SpO2 sensor was located on the right upper extremity, which also had the BP cuff. I switched the SpO2 sensor to the left hand and turned her O2 off. She remained stable on RA throughout my exam. She states that she has been experiencing recurrent episodes of nausea, vomiting, cramping abdominal pain, and non-bloody diarrhea since 07/03/23. She denies recent fever, chest pain, SOB, cough, hematemesis, LE swelling,and recent falls/trauma. When asked about urinary symptoms she mentions that she has been experiencing increased urinary frequency and some dysuria, over the past 4-5 days, she denies hematuria. Her oral intake has been poor since 07/03, she has been taking her medications as prescribed. She is the primary caregiver for her who has multiple chronic medical issues, she has been too weak to safely care for him at home. Her children are able to stay with him while she is admitted. She has a chronic tremor which is exacerbated during times of increased stress. We discussed code status, she is a DNR/DNI and her children would make medical decisions for her if she cannot make them herself. Please refer to Dr. Olivo's attestation for any changes to the treatment plan Principal Dx & Hospital Course #1 = Principal Diagnosis (1) Generalized weakness: - Suspect from UTI vs gastroenteritis - Stool cultures/c.diff still uncollected - Patient without any episodes of diarrhea today, very low suspicion for any sort of infectious process - Nausea has improved. -Will d/c fluids - 3L received -PT/OT consults - recommend home with additional support - patient is the primary caregiver for her , and currently unable to take care of him in her current physical state. I called and talked to her son, Hugo, who will be staying with the patient and her for the next few days. He is aware that Radha is not able to provide care currently, and he is able to help with her care as well. - patient declined walker multiple times, patient is aware that if she changes her mind she can get a prescription from her PCP - patient did walk the halls with RN prior to discharge (2) UTI (urinary tract infection): - received ceftriaxone while inpatient urine culture with gram-negative bacilli blood cultures no growth at 24 hours discharged on cefdinir, renally dosed 300 mg once a day (3) Nausea vomiting and diarrhea: improved - stool panel with C. diff PCR - were never collected due to lack of bowel movement - KUB without obstruction -PRN zofran (4) Dehydration: -Cr and BUN are elevated, but not technically an JOHN at this time - Clinically improved, and patient reports good appetite - Kidney function improving - baseline creatinine 1.7-1.8, GFR ~25 --> CKD IV (5) Hypoxia: -Resolved - Unsure if patient was truly hypoxic as SpO2 finger sensor on the same arm as her BP cuff in the ER Now stable on room air (6) Hypertension: -BPs stable - spironolactone held on discharge patient with low to normal blood pressures and in the setting of dehydration would recommend a different antihypertensive agent if needs further blood pressure control. will defer to PCP Plan dispo: Discharged to home with son Discharge Exam General: NAD, VS as above, Appears much better than yesterday Resp: normal respiratory effort, lungs clear to auscultation, currently on room air CV: RRR, no murmur, Abd: normal bowel sounds, mild suprapubic tenderness, no hepatosplenomegaly Extremities: Moves all extremities, no edema Updated Medication List Medication Instructions Recorded Confirmed Type tramadol 50 mg tablet 50 mg PO BID PRN pain #60 tabs 04/22/23 07/08/23 Rx oxybutynin chloride 10 mg 10 mg PO DAILY #90 tabs 04/28/23 07/08/23 Rx tablet,extended release 24 hr pravastatin 40 mg tablet 40 mg PO DAILY #90 tabs 04/28/23 07/08/23 Rx pregabalin 75 mg capsule 75 mg PO BID #60 caps 04/28/23 07/08/23 Rx spironolactone 25 mg tablet 25 mg PO BID #180 tabs 04/28/23 07/08/23 Rx cholecalciferol (vitamin D3) 25 25 mcg PO DAILY 07/05/23 07/08/23 History mcg (1,000 unit) capsule (Vitamin D3) coQ10 (ubiquinol) 100 mg capsule 100 mg PO DAILY 07/05/23 07/08/23 History cyanocobalamin (vitamin B-12) 1,000 mcg PO DAILY 07/05/23 07/08/23 History 1,000 mcg tablet (Vitamin B-12) acetaminophen 325 mg tablet 650 mg (2 x 325 mg) PO QID 30 days 07/07/23 07/08/23 Rx #240 tabs cefdinir 300 mg capsule 300 mg PO ONCE 5 days #5 caps 07/07/23 07/08/23 Rx Hospital Stay Data Consultations 07/05/23 17:43 ED Decision to Admit Stat Diagnostic Imagining Performed Chest X-Ray 07/05/23 15:45 XR chest 1V portable HISTORY: weakness COMPARISON: Chest 08/16/2007. FINDINGS: No pneumothorax. No pleural effusions. There are low lung volumes. The cardiac silhouette is mildly enlarged. This is similar to the prior study. No new focal lung consolidations to suggest a pneumonia. No evidence for pulmonary edema. There are calcifications within the aortic knob. No acute fractures identified. IMPRESSION: No significant change compared to the prior study. No acute process. ACT 112: Negative or not required by law. Electronically signed by: Alfonzo Elaine M.D. 07/05/2023 4:40 PM KUB X-Ray 07/05/23 18:55 KUB HISTORY: nausea, vomiting, abd pain COMPARISON: Abdomen and pelvis CT 01/13/2008. FINDINGS: The bowel gas pattern is unremarkable. There are no dilated loops of small bowel to suggest an obstruction. No renal calculi. No ureteral calculi. Calcifications in the deep pelvis likely represent phleboliths. Prior cholecystectomy. No pneumoperitoneum or pneumatosis. IMPRESSION: Nonobstructive bowel gas pattern. ACT 112: Negative or not required by law. Electronically signed by: Alfonzo Elaine M.D. 07/05/2023 7:37 PM Pending Results Patient Have Any Pending Studies at Discharge: Yes (blood culture and urine culture ) Discharge Instructions Given to Patient (Per Discharging Provider) Ms. Garcia, Ricardo were hospitalized after having weakness and diarrhea which was found to be from dehydration and a urinary tract infection. You were treated with IV fluids for dehydration and IV antibiotics for the urinary tract infection. You will transition to oral antibiotics for 5 more days to continue to treat this infection. It is important you take the whole course of this medication. - Cefedinir 300 mg once a day As we discussed, I will call you if we have to change your antibiotic based on the culture from your urine. If you have pain with urination in the future, I recommend that you contact your PCP when this start to hopefully start antibiotics sooner and prevent hospitalization. You worked with physical therapy and occupation therapy while you were here - you are alittle worse from your baseline, but they recommended that you can go home as long as you have extra help. It was recommended that you use a walker but you declined this multiple times. If you change your mind, your PCP can order one through your insurance. We have held your spironolactone while you were inpatient as this can also cause dehydration. Your blood pressure has been stable without it. Your primary care will discuss if you need to restart this. Follow-up appointments: Make an appointment with your primary care physician within one week of discharge. A copy of this summary will be sent to them. Every time you see your primary care physician, or any other doctor, bring your medication list, and a list of questions. CONTACT YOUR PRIMARY CARE PROVIDER if you experience any of the following: Shortness of breath or difficulty breathing Fevers or chills Feeling tired with normal activity or experiencing dizziness or fainting Difficulty following your treatment plan, or difficulty taking medications CALL 911 OR GO TO THE EMERGENCY DEPARTMENT if you experience any of the following: Severe abdominal pain or nausea/vomiting Severe chest pain, or chest pain that radiates (moves) to your jaw or arm Sudden, severe shortness of breath or difficulty breathing Thank you for allowing us to participate in your care. Total Time Total Time Spent Total Time Spent (In Minutes): Time spend day of discharge 45 minutes including direct patient care, medication reconciliation, documentation, review of labs and images, and coordination of care. Supervising Physician Co-Signing Physician Notes During face to face encounter, I obtained a brief physical examination, discussed hospital stay with patient and discharge instructions with patient. I discussed discharge plan of care with VEE Velez. I reviewed above note and agree with it except for the following: Patient will be discharged on antibiotics cefdinir to treat her UTI. Coding Level of Care Code 90573 INP/OBS DISCH >30 MIN Diagnoses Generalized weakness R53.1 UTI (urinary tract infection) N39.0 Nausea vomiting and diarrhea R11.2; R19.7 Dehydration E86.0 Hypoxia R09.02 Hypertension I10
== END 2023-07-07 15:54 | disposition home or self-care (01) | DRG 690 ==
LOC: ED 15:35 → SUATTDRO 18:45 → EDINP 18:45 → 2N 20:46